=== PATIENT | male | born 1965 | race African-American/Black ===

== ENCOUNTER 2017-11-21 14:40 | Emergency (ER) | payer SELFPAY ==
[~2017-11-21] VITALS: Ht 182.9 cm; Wt 97.7 kg
[2017-11-21 14:50] VITALS: BP 157/101; PULSE 90; RESP 20; TEMP 98.8; O2SAT 100
[2017-11-21 16:34] LABS: BACTERIA, URINE MANY /hpf; BILIRUBIN, URINE NEG (NEG); BLOOD, URINE NEG (NEG); GLUCOSE,URINE NEG (NEG); KETONE, URINE NEG (NEG); NITRITE,URINE POS (NEG); PH, URINE 6.5 (5.0-8.5); SQUAMOUS EPITHELIAL CELL URINE <1 /hpf (0-5); URINE COLOR YELLOW (YELLW/STRAW); URINE LEUKOCYTE ESTERASE LARGE (NEG)
[2017-11-21 16:40] LABS: ALKALINE PHOSPHATASE 97 U/L (45-117); TOTAL BILIRUBIN ADULT 0.3 MG/DL (0.2-1.0); TOTAL PROTEIN 8.1 GM/DL (6.4-8.2)
[2017-11-21 16:50] LABS: ALBUMIN 2.8 GM/DL (3.4-5.0); ALT (GPT) 30 U/L (12-78); AST (GOT) 29 U/L (15-37); BICARBONATE 21.6 MEQ/L (21.0-32.0); BLOOD UREA NITROGEN 18 MG/DL (7-18); CALCIUM 8.8 MG/DL (8.5-10.1); CHLORIDE 110 MEQ/L (98-107); CREATININE 1.29 MG/DL (0.60-1.30); GLOMERULAR FILTRATION RATE 70 ML/MIN (>89); GLUCOSE,RANDOM 99 MG/DL (74-106); SODIUM (NA) 138 MEQ/L (136-145)
[2017-11-21] MEDS ORDERED: SODIUM CHLORIDE 0.9% FLUSH 10 ML FLUSH IVF PRN (18:00)
[2017-11-21] MEDS ORDERED: cefTRIAXone 250 MG VIAL IM ONE (18:00)
[2017-11-21] MEDS ORDERED: AZITHROMYCIN PWD FOR SUSP 1 GM PACKET PO ONE (18:00)
[2017-11-21] MEDS ORDERED: LIDOCAINE HCL 1% 50 ML VIAL XX ONE (18:00)
[2017-11-21] MEDS ORDERED: CIPR-9 PO (18:01)
--- NOTE | 2017-11-21 18:01 | PD ---
HPI Chief Complaint: Complaint Time Seen by Provider: 17:42 Travel History International Travel<30 days: No Contact w/Intl Traveler<30days: No Traveled to known affect area: No History of Present Illness HPI 52-year-old male complains of dysuria, frequency and right testicular pain. Patient states that symptoms started a week ago. Patient denies any urethral discharge. Patient denies any back pain. Patient denies any fever chills. Patient states the pain is aching pain localized the right testicle. Patient denies any pain radiation. Patient denies any injury to the groin area. PFSH Social History Tobacco Use: No Allergies-Medications (Allergen,Severity, Reaction): Coded Allergies: No Known Allergies (Unverified , 11/21/17) Reported Meds & Prescriptions Reported Meds & Active Scripts Active Cipro (Ciprofloxacin HCl) 500 Mg Tab 500 Mg PO BID Review of Systems General / Constitutional: No: Fever Eyes: No: Visual changes HENT: No: Headaches Cardiovascular: No: Chest Pain or Discomfort Respiratory: No: Shortness of Breath Gastrointestinal: No: Abdominal Pain Genitourinary: Positive: Frequency, Dysuria Musculoskeletal: No: Pain Skin: No Rash Neurologic: No: Weakness Psychiatric: No: Depression Endocrine: No: Polydipsia Hematologic/Lymphatic: No: Easy Bruising Physical Exam Narrative GENERAL: Well-nourished, well-developed patient. SKIN: Focused skin assessment warm/dry. HEAD: Normocephalic. EYES: No scleral icterus. No injection or drainage. NECK: Supple, trachea midline. No JVD or lymphadenopathy. CARDIOVASCULAR: Regular rate and rhythm without murmurs, gallops, or rubs. RESPIRATORY: Breath sounds equal bilaterally. No accessory muscle use. GASTROINTESTINAL: Abdomen soft, non-tender, nondistended. MUSCULOSKELETAL: No cyanosis, or edema. BACK: Nontender without obvious deformity. No CVA tenderness. exam: Patient has mild tenderness on palpation right testicle and spermatic cord area. No evidence of hernia. No soft tissue swelling noted. No scrotum edema. No urethral discharge or lesions noted. Data Data Last Documented VS Vital Signs Date Time Temp Pulse Resp B/P (MAP) Pulse Ox O2 Delivery O2 Flow Rate FiO2 11/21/17 14:50 98.8 90 20 157/101 (119) 100 Orders Orders Complete Blood Count With Diff (11/21/17 14:52) Comprehensive Metabolic Panel (11/21/17 14:52) Urinalysis - C+S If Indicated (11/21/17 14:52) Urine Culture (11/21/17 16:02) Azithromycin Powd Pack (Zithromax Powd P (11/21/17 18:00) Ceftriaxone Inj (Rocephin Inj) (11/21/17 18:00) Sodium Chloride 0.9% Flush (Ns Flush) (11/21/17 18:00) Lidocaine 1% Inj (50 Ml) (Xylocaine 1% I (11/21/17 18:00) Ed Discharge Order (11/21/17 18:01) Azithromycin (Zithromax) (11/21/17 18:15) Labs Laboratory Tests Test 11/21/17 16:02 Urine Color YELLOW Urine Turbidity HAZY Urine pH 6.5 Urine Specific [place] 1.023 Urine Protein TRACE mg/dL Urine Glucose (UA) NEG mg/dL Urine Ketones NEG mg/dL Urine Occult Blood NEG Urine Nitrite POS Urine Bilirubin NEG Urine Urobilinogen LESS THAN 2.0 MG/DL Urine Leukocyte Esterase LARGE Urine RBC 4 /hpf Urine WBC 73 /hpf Urine Squamous Epithelial Cells <1 /hpf Urine Bacteria MANY /hpf Microscopic Urinalysis Comment CULTURE INDICATED Blood Urea Nitrogen 18 MG/DL Creatinine 1.29 MG/DL Random Glucose 99 MG/DL Total Protein 8.1 GM/DL Albumin 2.8 GM/DL Calcium Level 8.8 MG/DL Alkaline Phosphatase 97 U/L Aspartate Amino Transf (AST/SGOT) 29 U/L Alanine Aminotransferase (ALT/SGPT) 30 U/L Total Bilirubin 0.3 MG/DL Sodium Level 138 MEQ/L Potassium Level 4.4 MEQ/L Chloride Level 110 MEQ/L Carbon Dioxide Level 21.6 MEQ/L Anion Gap 6 MEQ/L Estimat Glomerular Filtration Rate 70 ML/MIN MDM Medical Decision Making Medical Screen Exam Complete: Yes Emergency Medical Condition: Yes Interpretation(s) UA positive for WBC. Differential Diagnosis Differential diagnosis including urethritis, UTI, epididymitis, orchitis. No evidence of testicular torsion. Narrative Course 52-year-old male with dysuria, frequency and right testicular pain. Rocephin 250 mg IM. Zithromax 1 g p.o. Diagnosis Primary Impression: UTI (urinary tract infection) Qualified Codes: N30.00 - Acute cystitis without hematuria Additional Impression: Epididymitis Patient Instructions: General Instructions Additional Instructions: Take medications as directed. Tylenol ibuprofen for pain. Follow-up with personal physician and urologist. Return if worse. Med/Other Pt SpecificInfo: Prescription(s) given Scripts Ciprofloxacin (Cipro) 500 Mg Tab 500 MG PO BID for Infection, #20 TAB 0 Refills Prov: Samy Read MD 11/21/17 Disposition: 01 DISCHARGE HOME Condition: Stable Samy Read MD Nov 21, 2017 18:01
[2017-11-21] MEDS ORDERED: AZITHROMYCIN 250 MG TAB PO ONE (18:15)
== END 2017-11-21 18:07 | disposition home or self-care (01) ==
LOC: NED 14:40 → NEPD 18:07
DX: N39.0 Urinary tract infection, site not specified (principal); N45.1 Epididymitis; B96.20 Unspecified Escherichia coli [E. coli] as the cause of diseases classified elsewhere
CPT/HCPCS: 80053; 81001; 87077; 87086; 87186; 99283; J0696